=== PATIENT | male | born 2000 | race Caucasian/White ===

== ENCOUNTER 2019-01-11 17:25 | Emergency (ER) | payer OTHER ==
[~2019-01-11] VITALS: Ht 193 cm; Wt 104.3 kg
[~2019-01-11 17:25] MED LIST: BUPR150T5 PO; LISD20CA PO
--- NOTE | 2019-01-11 17:43 | NUR ---
Patient ambulated with stable gait. A/Ox4. Speech clear, speaks in complete sentences. No neuro deficits noted. Patient came in for c/o seizure that occurred 0030. Per patient he stated he was at his friends house and his friends said that he seized for about a minute. Patient has no recollection of what happened, and denies any trauma. Patient was in a sidelying position on a couch when he seized. He reports taking dextromorphan powder, and cephalexin and feels that it might be a drug induced seizure. Respiratory even and unlabored, no cough no sob. No signs of cardiovascular distress noted. Patient reported vomiting last night post seizure, but denies any n/v/d within the past couple of hours. Patient in bed at lowest position, side rails upx2, call light within reach. Seizure precautions implemented per protocol.
[2019-01-11] MEDS ORDERED: CIPROFLOXACIN (17:52)
[2019-01-11 17:53] LABS: BASOPHILS % (AUTO) 0.1 % (0.0-2.0); EOSINOPHILS # (AUTO) 0.1 K/uL (0.0-0.7); EOSINOPHILS % (AUTO) 0.6 % (0.0-7.0); HEMATOCRIT 43.7 % (36.7-47.1); LYMPHOCYTES # (AUTO) 1.1 K/uL (20.0-40.0); LYMPHOCYTES % (AUTO) 7.7 % (20.5-74.5); MEAN CORPUSCULAR HEMOGLOBIN 30.4 uug (23.8-33.4); MEAN CORPUSCULAR HGB CONC 34 g/dL (32.5-36.3); MEAN CORPUSCULAR VOLUME 88.7 fL (73.0-96.2); MONOCYTES # (AUTO) 1.7 K/uL (2.0-10.0); MONOCYTES % (AUTO) 12.5 % (0-11); NEUTROPHILS % (AUTO) 79.1 % (31.5-64.5); PLATELET COUNT (AUTO) 271 K/uL (152-348); RED BLOOD CELL COUNT(AUTO) 4.93 MIL/uL (4.06-5.63); WHITE BLOOD COUNT (AUTO) 13.9 K/uL (3.6-10.2)
--- NOTE | 2019-01-11 17:55 | NUR ---
Patient transfered to CT via gurney in stable condition
--- NOTE | 2019-01-11 18:04 | NUR ---
Patient back from CT in stable condition.
[2019-01-11 18:05] LABS: CREATININE 1.1 mg/dL (0.6-1.3); POTASSIUM 4.1 mmol/L (3.5-5.1)
[2019-01-11 20:27] VITALS: BP 132/76
== END 2019-01-11 20:28 | disposition home or self-care (01) ==
LOC: ER 17:26
DX: S22.048A Other fracture of fourth thoracic vertebra, initial encounter for closed fracture (principal); S22.058A Other fracture of T5-T6 vertebra, initial encounter for closed fracture; R56.9 Unspecified convulsions; T48.3X1A Poisoning by antitussives, accidental (unintentional), initial encounter; J45.909 Unspecified asthma, uncomplicated; Z79.2 Long term (current) use of antibiotics; Z79.899 Other long term (current) drug therapy; X58.XXXA Exposure to other specified factors, initial encounter; Y92.89 Other specified places as the place of occurrence of the external cause; Y93.89 Activity, other specified; Y99.8 Other external cause status
CPT/HCPCS: 36415; 70450; 72072; 72125; 85025; A4663

== ENCOUNTER 2025-08-11 19:07 | Emergency (ER) | payer BC, OTHER ==
[~2025-08-11] VITALS: Ht 193 cm; Wt 127.0 kg
[~2025-08-11 19:07] MED LIST changes: +CIPROFLOXACIN
[2025-08-11 19:26] VITALS: BP 153/98
[2025-08-11 19:59] VITALS: BP 143/72; TEMP 98; O2SAT 97
== END 2025-08-11 20:00 | disposition home or self-care (01) ==
LOC: ER 19:16 → EDSEX 19:16 → ER 20:00
DX: R68.84 Jaw pain (principal); F17.290 Nicotine dependence, other tobacco product, uncomplicated; J45.909 Unspecified asthma, uncomplicated; Z79.899 Other long term (current) drug therapy
CPT/HCPCS: A4606; A4663